=== PATIENT | male | born 1955 | race Caucasian/White ===

== ENCOUNTER 2017-12-20 07:48 | Outpatient (CLI) | payer OTHER ==
[~2017-12-20 07:48] MED LIST: CRESTOR5 MG PO; MULTI-DAY1 TAB PO; TAMS0.4C PO; VIT C-BIOFLAVO1 EACH PO
== END 2017-12-20 07:58 | disposition home or self-care (01) ==
LOC: RAD 07:48
DX: R31.0 Gross hematuria (principal); C61 Malignant neoplasm of prostate; N31.2 Flaccid neuropathic bladder, not elsewhere classified

== ENCOUNTER 2019-02-20 12:36 | Outpatient (CLI) | payer OTHER | END 2019-02-20 12:40 | disposition home or self-care (01) | LOC: LAB 12:36 | DX: R97.20 Elevated prostate specific antigen [PSA] (principal) ==

== ENCOUNTER 2019-03-14 07:16 | Outpatient (CLI) | payer OTHER | END 2019-03-14 07:21 | disposition home or self-care (01) | LOC: SONOGRAMA 07:16 | DX: C61 Malignant neoplasm of prostate (principal); R97.20 Elevated prostate specific antigen [PSA] ==

== ENCOUNTER 2021-06-27 07:35 | Outpatient (CLI) | payer OTHER | END 2021-06-27 07:36 | disposition home or self-care (01) | LOC: TOM 07:35 | PROVIDERS: ATTEND Urology | DX: R31.0 Gross hematuria (principal); C61 Malignant neoplasm of prostate ==

== ENCOUNTER 2021-09-12 15:32 | Outpatient (CLI) | payer OTHER | END 2021-09-12 15:39 | disposition home or self-care (01) | LOC: LAB 15:32 | PROVIDERS: ATTEND Urology | DX: R97.20 Elevated prostate specific antigen [PSA] (principal) ==

== ENCOUNTER 2021-12-23 07:38 | Outpatient (CLI) | payer OTHER | END 2021-12-23 07:53 | disposition home or self-care (01) | LOC: SONOGRAMA 07:38 | PROVIDERS: ATTEND Urology | DX: R97.20 Elevated prostate specific antigen [PSA] (principal); N42.32 Atypical small acinar proliferation of prostate; N40.1 Benign prostatic hyperplasia with lower urinary tract symptoms ==